=== PATIENT | female | born 1945 | race Caucasian/White ===

== ENCOUNTER 2025-01-10 12:38 | Observation (INO) ==
[2025-01-10 14:39] VITALS: BMI 23.8
[2025-01-10 15:07] LABS: MEAN PLATELET VOLUME 7.8 fL (7.4-11.0); RED CELL DISTRIBUTION WIDTH 14.9 % (11.6-16.5)
[2025-01-10 15:11] LABS: COR CA(FOR HYPOALB) 9.5 mg/dL (8.5-10.1); COR NA(FOR HYPERGLY) 128.0 mmol/L (136-145); CREATININE 1.13 mg/dL (0.55-1.02); eGFR NON BLACK RACES 49.0 (>60)
[2025-01-10] MEDS ORDERED: BUTT CREAM (COMPOUND) TOP PRN (15:20)
[2025-01-10 15:29] LABS: BLOOD/HEMOGLOBIN,URINE NEGATIVE (NEGATIVE); LEUKOCYTE ESTERASE ,URINE NEGATIVE (NEGATIVE); NITRITES,URINE NEGATIVE (NEGATIVE)
[2025-01-10] MEDS: NS 1,000 ML IV 1,000 ML IV SCH (15:32)
[2025-01-10 15:42] LABS: APPEARANCE,URINE CLEAR (CLEAR); SQUAMOUS EPITHELIAL CELL,UR FEW /HPF (NEGATIVE)
[2025-01-10 15:43] LABS: HYALINE CASTS, URINE FEW /LPF (NEGATIVE)
[2025-01-10] MEDS: ELIQUIS PO SCH (21:02)
[2025-01-10] MEDS: REQUIP PO SCH (21:02)
[2025-01-10] MEDS: GLUCOPHAGE PO SCH (21:02)
[2025-01-10] MEDS: LOPRESSOR TAB 25 MG PO SCH (21:02)
[2025-01-10] MEDS: KLONOPIN TAB 0.5 MG PO PRN (21:03)
[2025-01-10] MEDS: ZOCOR TAB 40 MG PO SCH (21:03)
[2025-01-11 06:26] LABS: MEAN PLATELET VOLUME 8.0 fL (7.4-11.0); RED CELL DISTRIBUTION WIDTH 15.2 % (11.6-16.5)
[2025-01-11 06:34] LABS: COR CA(FOR HYPOALB) 9.5 mg/dL (8.5-10.1); CREATININE 0.76 mg/dL (0.55-1.02); eGFR NON BLACK RACES > 60 (>60)
[2025-01-11] MEDS: PROTONIX TAB 40 MG PO SCH (08:49)
[2025-01-11] MEDS: NEURONTIN CAP 300 MG PO SCH (08:49)
[2025-01-11] MEDS: ASPIRIN EC 81 MG PO SCH (08:49)
[2025-01-11] MEDS: HYZAAR 50/12.5 MG PO SCH (08:49)
[2025-01-11] MEDS: COLACE CAP 100 MG PO SCH (08:50)
--- NOTE | 2025-01-11 09:27 | DR.H&P ---
H&P History & Physical for Day of: H&P Date: 01/11/25 Chief Complaint Chief Complaint: hyponatremia History of Present Illness History of Present Illness: Patient is a 79-year-old female resident of [facility] that was admitted for hyponatremia and dehydration. Labs obtained at the residential revealed hyponatremia of 127. Other than the abnormal labs she does report generalized weakness. Labs/imaging: WBC 3.7, hemoglobin 10.8, platelets 128, sodium 133, potassium 4.3, creatinine 0.76, glucose 86. Patient was started on IV fluids normal saline at 75 mL/h. Home medications were restarted. Otherwise continue with current treatment plan. Continue closely monitor and follow-up labs in the morning. Past Medical History Past Medical History: Diabetes, Dyslipidemia, GERD, Hypertension and Hypothyroidism Past Surgical History Surgical History: Cholecystectomy and Ortho Surgery Family History Family Medical History: Coronary Artery Disease and Heart Failure Social History Does any household member use tobacco: No Alcohol Use: None Drug Use: None Medications Home Medications: Home Medications Medication Instructions Recorded Confirmed Type levothyroxine 88 mcg tablet 100 mcg PO QDAY 09/04/24 0 01/10/25 History simvastatin 40 mg tablet 40 mg PO QPM 09/04/24 History apixaban 2.5 mg tablet (Eliquis) 2.5 mg PO BID 01/10/25 History aspirin 81 mg tablet,delayed 81 mg PO QDAY 10/13/24 History release gabapentin 300 mg capsule 300 mg PO QDAY 10/13/2412/13 History losartan 50 mg-hydrochlorothiazide 1 tab PO QDAY 10/1301/10/25 History 12.5 mg tablet metformin 500 mg tablet 500 mg PO BID 10/13/2401/10 History metoprolol tartrate 25 mg tablet 25 mg PO BID 10/13/24 01/10/25 History docusate sodium 100 mg tablet 100 mg PO DAILY 10/23/24 01/10/25 History clonazepam 0.5 mg tablet 0.5 mg PO HS PRN 01/10/25 History metoclopramide HCl 5 mg tablet 5 mg PO BID PRN 5 01/10/25 History ondansetron HCl 4 mg tablet 4 mg PO Q8H PRN 01/10/25 0 01/10/25 History pantoprazole 40 mg tablet,delayed 40 mg PO QDAY 01/10/25 History release ropinirole 0.25 mg tablet 0.25 mg PO TID 01/10/2512/13 History spironolactone 25 mg tablet 25 mg PO QDAY 01/10/25 History Allergies Allergies Allergy/AdvReac Type Severity Reaction Status Date / Time celecoxib (From Celebrex) AdvReac Verified 10/23/24 08:23 Sulfa (Sulfonamide AdvReac Verified 10/23/24 08:23 Antibiotics) Labs 01/11/25 05:54 01/11/25 05:54 Labs: Laboratory WBC 3.7 X10^3/uL (3.6-10.0) 01/11/25 05:54 RBC 3.51 X10^6/uL (3.5-5.4) 01/11/25 05:54 Hgb 10.8 g/dL (12.0-16.0) L 01/11/25 05:54 Hct 31.5 % (36.0-47.0) L 01/11/25 05:54 MCV 89.8 fL (80.0-100.0) 01/11/25 05:54 MCH 30.8 pg (27.0-34.0) 01/11/25 05:54 MCHC 34.3 g/dL (33.0-35.0) 01/11/25 05:54 RDW 15.2 % (11.6-16.5) 01/11/25 05:54 Plt Count 128 X10^3/uL (150.0-450.0) L 01/11/25 05:54 MPV 8.0 fL (7.4-11.0) 01/11/25 05:54 Neut % (Auto) 64.9 % (42.0-75.0) 01/11/25 05:54 Lymph % (Auto) 22.9 % (21.0-51.0) 01/11/25 05:54 [place] % (Auto) 7.7 % (0.0-13.0) 01/11/25 05:54 Eos % (Auto) 3.8 % (0.9-2.9) H 01/11/25 05:54 Baso % (Auto) 0.7 % (0.2-1.0) 01/11/25 05:54 Neut # (Auto) 2.4 x10^3/uL (2.2-4.8) 01/11/25 05:54 Lymph # (Auto) 0.8 X10^3/uL (1.3-2.9) L 01/11/25 05:54 [place] # (Auto) 0.3 x10^3/uL (0.3-0.8) 01/11/25 05:54 Eos # (Auto) 0.1 x10^3/uL (0.0-0.2) 01/11/25 05:54 Baso # (Auto) 0.0 X10^3/uL (0.0-0.1) 01/11/25 05:54 Absolute Nucleated RBC 0.1 /100WBC 01/11/25 05:54 Sodium 133 mmol/L (136-145) L 01/11/25 05:54 Corrected Sodium TNP 01/11/25 05:54 Potassium 4.3 mmol/L (3.5-5.1) 01/11/25 05:54 Chloride 100 mmol/L (98-107) 01/11/25 05:54 Carbon Dioxide 27.6 mmol/L (21-32) 01/11/25 05:54 BUN 15 mg/dL (7-18) 01/11/25 05:54 Creatinine 0.76 mg/dL (0.55-1.02) 01/11/25 05:54 Est GFR (MDRD) Af Amer > 60 (>60) 01/11/25 05:54 Est GFR (MDRD) Non-Af > 60 (>60) 01/11/25 05:54 Glucose 86 mg/dL (65-99) 01/11/25 05:54 POC Glucose (mg/dL) 86 mg/dL (65-99) 01/11/25 05:27 Calcium 8.2 mg/dL (8.5-10.1) L 01/11/25 05:54 Corrected Calcium 9.5 mg/dL (8.5-10.1) 01/11/25 05:54 Total Bilirubin 0.30 mg/dL (0.2-1.0) 01/11/25 05:54 AST 27 Units/L (15-37) 01/11/25 05:54 ALT 29 Units/L (12-78) 01/11/25 05:54 Alkaline Phosphatase 51 Units/L (46-116) 01/11/25 05:54 Total Protein 5.3 g/dL (6.4-8.2) L 01/11/25 05:54 Albumin 2.4 g/dL (3.4-5.0) L 01/11/25 05:54 Globulin 2.9 g/dL (2.5-4.5) 01/11/25 05:54 Albumin/Globulin Ratio 0.8 Ratio (1.1-2.1) L 01/11/25 05:54 Specimen Type Catherized urine 01/10/25 15:15 Urine Color Yellow (YELLOW) 01/10/25 15:15 Urine Appearance Clear (CLEAR) 01/10/25 15:15 Urine pH 5.0 (5.0 - 8.0) 01/10/25 15:15 Ur Specific [place] 1.015 (1.000-1.030) 01/10/25 15:15 Urine Protein 1+ (NEGATIVE) 01/10/25 15:15 Urine Glucose (UA) Negative (NEGATIVE) 01/10/25 15:15 Urine Ketones Negative (NEGATIVE) 01/10/25 15:15 Urine Blood Negative (NEGATIVE) 01/10/25 15:15 Urine Nitrite Negative (NEGATIVE) 01/10/25 15:15 Urine Bilirubin Negative (NEGATIVE) 01/10/25 15:15 Urine Urobilinogen Normal (NORMAL) 01/10/25 15:15 Ur Leukocyte Esterase Negative (NEGATIVE) 01/10/25 15:15 Urine RBC 0-2 /HPF (0-3) 01/10/25 15:15 Urine WBC 0-2 /HPF (0-5) 01/10/25 15:15 Ur Squamous Epith Cells Few /HPF (NEGATIVE) 01/10/25 15:15 Amorphous Sediment Trace /HPF (NEGATIVE) 01/10/25 15:15 Urine Bacteria Trace /HPF (NEGATIVE) 01/10/25 15:15 Hyaline Casts Few /LPF (NEGATIVE) 01/10/25 15:15 Urine Mucus Few /HPF (NEGATIVE) 01/10/25 15:15 Ur Culture Indicated? No/not indicated 01/10/25 15:15 Review of Systems Constitutional: Weakness Eyes: No Symptoms Reported ENT: No Symptoms Reported Respiratory: No Symptoms Reported Cardiovascular: No Symptoms Reported Gastrointestinal: No Symptoms Reported Genitourinary: No Symptoms Reported Musculoskeletal: No Symptoms Reported Skin: No Symptoms Reported Neurological: No Symptoms Reported Physical Exam Vital Signs: Vital Signs Temperature 97.9 F Temperature 98.0 F Pulse Rate [Right Radial] 52 Pulse Rate [Right Radial] 61 Respiratory Rate 16 Respiratory Rate 18 Blood Pressure [Right Arm] 145/56 Blood Pressure [Right Arm] 147/59 O2 Sat by Pulse Oximetry 96 O2 Sat by Pulse Oximetry 100 Oriented: Normal Eyes: Normal Ear: Normal Nose: Normal Throat: Normal Respiratory: Clear Throughout Cardiovascular: Normal : Normal Auscultation: Bowel Sounds: Normal Palpation: Normal Tenderness: Normal Skin: Normal Musculoskeletal: Normal Psychiatric: Normal Mood Description: Calm and Appropriate Affect: Normal Speech Pattern: Clear and Appropriate Assessment/Plan (1) Hyponatremia: Status: Acute Plan: continue IVF, monitor. (2) Dehydration: Status: Acute (3) Generalized weakness: Status: Acute Review H&P Reviewed: Yes Patient was examined?: Yes
[2025-01-11] MEDS: ZOFRAN INJ 4 MG VIAL IVP PRN (09:37)
[2025-01-11] MEDS ORDERED: NovoLIN R (or HumuLIN R) SUBCUT PRN (10:19)
[2025-01-11] MEDS ORDERED: GLUCOPHAGE ONE (19:26)
[2025-01-11] MEDS: COLACE CAP 100 MG PO PRN (21:04)
[2025-01-11] MEDS: LOPRESSOR TAB 25 MG PO SCH (21:05)
[2025-01-11] MEDS: ZOCOR TAB 40 MG PO SCH (21:06)
[2025-01-11 23:39] VITALS: RESP 20
[2025-01-12 06:27] LABS: MEAN PLATELET VOLUME 7.8 fL (7.4-11.0); RED CELL DISTRIBUTION WIDTH 15.0 % (11.6-16.5)
[2025-01-12 06:39] LABS: COR CA(FOR HYPOALB) 9.3 mg/dL (8.5-10.1); CREATININE 0.82 mg/dL (0.55-1.02); eGFR NON BLACK RACES > 60 (>60)
[2025-01-12] MEDS: GLUCOPHAGE ONE ×2 (08:02)
[2025-01-12] MEDS: PHARMACY CONSULT LTC MEDICATIONS XX SCH (08:02)
[2025-01-12] MEDS ORDERED: GLUCOPHAGE ONE (08:10)
[2025-01-12] MEDS: PATIENT'S HOME MEDICATION PO SCH (08:33)
[2025-01-12 09:03] VITALS: BP 163/70; PULSE 52; TEMP 97.5; O2SAT 98
--- NOTE | 2025-01-12 12:30 | W.DIS.FURT ---
Summary of Discharge Discharge Summary of Date Date of Exam: 01/12/25 Admission Date Date of Admission: 01/10/25 Admission Diagnosis Hospital Course: Patient is a 79-year-old female resident of [facility] that was admitted for hyponatremia and dehydration. Her hospital course included IV fluids normal saline at 75 mL/h. Home medications were restarted. She responded well to treatments and sodium back to normal range. She was discharged in stable condition. She is instructed to keep up with her hydration and p.o. intake at the facility. Vital Signs: Vital Signs (72 hours) 01/10/25 13:51 01/10/25 14:00 01/10/25 15:34 Temperature 97.9 F 97.9 F Pulse Rate [Right Radial] 54 L 56 L Respiratory Rate 18 18 Blood Pressure [Right Arm] 161/70 160/82 O2 Sat by Pulse Oximetry 99 98 Oxygen Delivery Method Nasal Cannula Room Air Room Air 01/10/25 19:00 01/10/25 20:00 01/11/25 00:00 Temperature 97.5 F L 98.0 F Pulse Rate [Right Radial] 66 69 Respiratory Rate 18 18 Blood Pressure [Right Arm] 147/61 150/60 O2 Sat by Pulse Oximetry 100 99 Oxygen Delivery Method Nasal Cannula Room Air Room Air 01/11/25 04:00 01/11/25 07:00 01/11/25 07:45 Temperature 98.0 F 97.9 F Pulse Rate [Right Radial] 61 52 L Respiratory Rate 18 16 Blood Pressure [Right Arm] 147/59 145/56 O2 Sat by Pulse Oximetry 100 96 Oxygen Delivery Method Room Air Room Air Room Air 01/11/25 11:46 01/11/25 16:00 01/11/25 19:00 Temperature 97.4 F L 98.4 F Pulse Rate [Right Radial] 50 L 51 L Respiratory Rate 19 20 Blood Pressure [Right Arm] 160/71 159/69 O2 Sat by Pulse Oximetry 98 98 Oxygen Delivery Method Room Air Room Air Room Air 01/11/25 19:54 01/11/25 23:38 01/12/25 04:00 Temperature 97.7 F 98.2 F 97.7 F Pulse Rate [Right Radial] 56 L 55 L 54 L Respiratory Rate 18 20 20 Blood Pressure [Right Arm] 160/74 143/65 133/61 O2 Sat by Pulse Oximetry 98 98 96 Oxygen Delivery Method Room Air Room Air Room Air 01/12/25 07:00 01/12/25 08:00 Temperature 97.5 F L Pulse Rate [Right Radial] 52 L Respiratory Rate 20 Blood Pressure [Right Arm] 163/70 O2 Sat by Pulse Oximetry 98 Oxygen Delivery Method Room Air Room Air Labs: Laboratory Last Values WBC 2.9 X10^3/uL (3.6-10.0) L 01/12/25 06:08 RBC 3.23 X10^6/uL (3.5-5.4) L 01/12/25 06:08 Hgb 10.0 g/dL (12.0-16.0) L 01/12/25 06:08 Hct 29.0 % (36.0-47.0) L 01/12/25 06:08 MCV 89.8 fL (80.0-100.0) 01/12/25 06:08 MCH 31.1 pg (27.0-34.0) 01/12/25 06:08 MCHC 34.6 g/dL (33.0-35.0) 01/12/25 06:08 RDW 15.0 % (11.6-16.5) 01/12/25 06:08 Plt Count 123 X10^3/uL (150.0-450.0) L 01/12/25 06:08 MPV 7.8 fL (7.4-11.0) 01/12/25 06:08 Neut % (Auto) 63.1 % (42.0-75.0) 01/12/25 06:08 Lymph % (Auto) 24.3 % (21.0-51.0) 01/12/25 06:08 [place] % (Auto) 7.3 % (0.0-13.0) 01/12/25 06:08 Eos % (Auto) 4.0 % (0.9-2.9) H 01/12/25 06:08 Baso % (Auto) 1.3 % (0.2-1.0) H 01/12/25 06:08 Neut # (Auto) 1.8 x10^3/uL (2.2-4.8) L 01/12/25 06:08 Lymph # (Auto) 0.7 X10^3/uL (1.3-2.9) L 01/12/25 06:08 [place] # (Auto) 0.2 x10^3/uL (0.3-0.8) L 01/12/25 06:08 Eos # (Auto) 0.1 x10^3/uL (0.0-0.2) 01/12/25 06:08 Baso # (Auto) 0.0 X10^3/uL (0.0-0.1) 01/12/25 06:08 Absolute Nucleated RBC 0.1 /100WBC 01/12/25 06:08 Sodium 135 mmol/L (136-145) L 01/12/25 06:08 Corrected Sodium TNP 01/12/25 06:08 Potassium 4.6 mmol/L (3.5-5.1) 01/12/25 06:08 Chloride 103 mmol/L (98-107) 01/12/25 06:08 Carbon Dioxide 30.0 mmol/L (21-32) 01/12/25 06:08 BUN 15 mg/dL (7-18) 01/12/25 06:08 Creatinine 0.82 mg/dL (0.55-1.02) 01/12/25 06:08 Est GFR (MDRD) Af Amer > 60 (>60) 01/12/25 06:08 Est GFR (MDRD) Non-Af > 60 (>60) 01/12/25 06:08 Glucose 103 mg/dL (65-99) H 01/12/25 06:08 POC Glucose (mg/dL) 98 mg/dL (65-99) 01/12/25 10:25 Calcium 7.9 mg/dL (8.5-10.1) L 01/12/25 06:08 Corrected Calcium 9.3 mg/dL (8.5-10.1) 01/12/25 06:08 Total Bilirubin 0.20 mg/dL (0.2-1.0) 01/12/25 06:08 AST 36 Units/L (15-37) 01/12/25 06:08 ALT 35 Units/L (12-78) 01/12/25 06:08 Alkaline Phosphatase 57 Units/L (46-116) 01/12/25 06:08 Total Protein 4.9 g/dL (6.4-8.2) L 01/12/25 06:08 Albumin 2.2 g/dL (3.4-5.0) L 01/12/25 06:08 Globulin 2.7 g/dL (2.5-4.5) 01/12/25 06:08 Albumin/Globulin Ratio 0.8 Ratio (1.1-2.1) L 01/12/25 06:08 Specimen Type Catherized urine 01/10/25 15:15 Urine Color Yellow (YELLOW) 01/10/25 15:15 Urine Appearance Clear (CLEAR) 01/10/25 15:15 Urine pH 5.0 (5.0 - 8.0) 01/10/25 15:15 Ur Specific [place] 1.015 (1.000-1.030) 01/10/25 15:15 Urine Protein 1+ (NEGATIVE) 01/10/25 15:15 Urine Glucose (UA) Negative (NEGATIVE) 01/10/25 15:15 Urine Ketones Negative (NEGATIVE) 01/10/25 15:15 Urine Blood Negative (NEGATIVE) 01/10/25 15:15 Urine Nitrite Negative (NEGATIVE) 01/10/25 15:15 Urine Bilirubin Negative (NEGATIVE) 01/10/25 15:15 Urine Urobilinogen Normal (NORMAL) 01/10/25 15:15 Ur Leukocyte Esterase Negative (NEGATIVE) 01/10/25 15:15 Urine RBC 0-2 /HPF (0-3) 01/10/25 15:15 Urine WBC 0-2 /HPF (0-5) 01/10/25 15:15 Ur Squamous Epith Cells Few /HPF (NEGATIVE) 01/10/25 15:15 Amorphous Sediment Trace /HPF (NEGATIVE) 01/10/25 15:15 Urine Bacteria Trace /HPF (NEGATIVE) 01/10/25 15:15 Hyaline Casts Few /LPF (NEGATIVE) 01/10/25 15:15 Urine Mucus Few /HPF (NEGATIVE) 01/10/25 15:15 Ur Culture Indicated? No/not indicated 01/10/25 15:15 Reason For Visit: DEHYDRATION, HYPONATREMIA Discharge Date Discharge Date: 01/12/25 Discharge Diagnosis All Active Problems (Updated 01/11/25 @ 09:26 by Jamin Cuevas MD) Generalized weakness (Acute) Hyponatremia (Acute) Acute confusion (Acute) Intra-abdominal infection (Acute) History of cholecystectomy (Chronic) Hypertension, well controlled (Chronic) Hypothyroidism (Chronic) Diabetes (Chronic) Cholelithiasis and cholecystitis without obstruction (Acute) Fall (Acute) Traumatic ecchymosis of left knee (Acute) Head injury, acute, without loss of consciousness (Acute) Acute cervical myofascial strain (Acute) Urinary tract infection (Acute) Hypomagnesemia (Acute) Fracture of femoral neck, right (Acute) Cystitis (Acute) Hypertension, uncontrolled (Acute) Abdominal pain (Acute) Nausea and vomiting (Acute) Dehydration (Acute) Weakness (Acute) Hypertension (Acute) UTI (urinary tract infection) (Acute) Abdominal pain (Acute) Dehydration (Acute) Cholelithiasis with acute cholecystitis (Acute) UTI (urinary tract infection) (Acute) Nausea & vomiting (Acute) Hypertension (Acute) Plan of Treatment: Continue with present treatment and follow up plan. Pt is to keep follow up appointment as instructed and take medications as ordered. Discharge Medications Discharge Medications: celecoxib (From Celebrex) Adverse Reaction (Verified 10/23/24 08:23) Sulfa (Sulfonamide Antibiotics) Adverse Reaction (Verified 10/23/24 08:23) CONTINUE taking the following medications clonazepam 0.5 mg tablet 0.5 mg PO HS PRN 01/10/25 [History] metoclopramide HCl 5 mg tablet 5 mg PO BID 01/10/25 [History] ondansetron HCl 4 mg tablet 8 mg PO Q8H PRN 01/10/25 [History] pantoprazole 40 mg tablet,delayed release 40 mg PO QDAY 01/10/25 [History] ropinirole 0.25 mg tablet 0.25 mg PO TID 01/10/25 [History] spironolactone 25 mg tablet 25 mg PO QDAY 01/10/25 [History] losartan 100 mg-hydrochlorothiazide 12.5 mg tablet 1 tab PO QDAY 01/11/25 [History] simvastatin 20 mg tablet 20 mg PO QPM 01/11/25 [History] Discharge Plan Discharge Plan Hospital Course: Patient is a 79-year-old female resident of [facility] that was admitted for hyponatremia and dehydration. Her hospital course included IV fluids normal saline at 75 mL/h. Home medications were restarted. She responded well to treatments and sodium back to normal range. She was discharged in stable condition. She is instructed to keep up with her hydration and p.o. intake at the facility. Patient Disposition: SNF Condition: Stable Health Concerns: Post Hospitalization: new medications and changes needed to prevent readmission or further decline. Pt educated and given instructions on all concerns. Plan of Treatment: Continue with present treatment and follow up plan. Pt is to keep follow up appointment as instructed and take medications as ordered. Prescriptions: Continued levothyroxine 88 mcg tablet 100 mcg PO QDAY metformin 500 mg tablet 500 mg PO BID aspirin 81 mg tablet,delayed release (DR/EC) 81 mg PO QDAY gabapentin 300 mg capsule 300 mg PO QDAY metoprolol tartrate 25 mg tablet 12.5 mg PO BID Eliquis 2.5 mg tablet 2.5 mg PO BID docusate sodium 100 mg Tablet 100 mg PO DAILY ondansetron HCl 4 mg tablet 8 mg PO Q8H PRN spironolactone 25 mg tablet 25 mg PO QDAY metoclopramide HCl 5 mg tablet 5 mg PO BID ropinirole 0.25 mg tablet 0.25 mg PO TID pantoprazole 40 mg tablet,delayed release (DR/EC) 40 mg PO QDAY clonazepam 0.5 mg tablet 0.5 mg PO HS MDD 1 PRN simvastatin 20 mg tablet 20 mg PO QPM losartan-hydrochlorothiazide 100-12.5 mg tablet 1 tab PO QDAY Orders to Discharge Patient Discharge Orders: Discharge (Routine); Ordered 01/12/25 Ordered By: Jamin Cuevas Follow ups/Referrals Follow ups/Referrals: Wendy Campo MD [Primary Care Provider, Unknown] - 1 WEEK Instructions Print Language: [place]INC[place]
== END 2025-01-12 11:45 ==
LOC: MED/SURG
PROVIDERS: ADMIT Internal Medicine; ATTEND Internal Medicine
DX: K21.9 Gastro-esophageal reflux disease without esophagitis; E03.8 Other specified hypothyroidism; E11.65 Type 2 diabetes mellitus with hyperglycemia; M25.562 Pain in left knee; R53.1 Weakness; R26.89 Other abnormalities of gait and mobility; E87.1 Hypo-osmolality and hyponatremia; L89.159 Pressure ulcer of sacral region, unspecified stage; Z79.01 Long term (current) use of anticoagulants; I10 Essential (primary) hypertension; E83.51 Hypocalcemia; E78.5 Hyperlipidemia, unspecified; M25.561 Pain in right knee; E86.0 Dehydration